=== PATIENT | female | born 1960 ===

== ENCOUNTER 2017-06-05 17:09 | Emergency (ER) | payer MEDICAID ==
[2017-06-05 17:17] VITALS: RESP 18
[2017-06-05] MEDS ORDERED: Albuterol-Ipratrop 3 mg / 0.5 (3 ml) UD IH STA (17:36)
--- NOTE | 2017-06-05 17:54 | RAD ---
HISTORY: SOB, cough COMPARISON: Chest x-ray performed 10/31/16 TECHNIQUE: Chest PA and lateral FINDINGS: Examination limited by habitus and hypoinflation. LUNGS: Prominent interstitial markings likely reflect vascular crowding due to hypoinflation rather than pulmonary venous congestion. Mild biapical pleural thickening. No focal consolidation. Please note that chest x-ray has limited sensitivity for the detection of pulmonary masses. PLEURA: No significant pleural effusion identified. No definite pneumothorax . CARDIOVASCULAR: Heart size appears within normal limits. OSSEOUS STRUCTURES: No acute osseous abnormality identified. VISUALIZED UPPER ABDOMEN: Unremarkable. OTHER FINDINGS: None. IMPRESSION: Prominent interstitial markings likely reflect vascular crowding due to hypoinflation rather than pulmonary venous congestion. Correlate clinically. Mild biapical pleural thickening.
[2017-06-05] MEDS ORDERED: Albuterol-Ipratrop 3 mg / 0.5 (3 ml) UD ONE (17:56)
[2017-06-05 18:11] LABS: BASO % 0.4 % (0.0-2.0); EOS # 0.1 K/uL (0.0-0.7); EOS % 1.1 % (0.0-4.0); HEMATOCRIT 44.7 % (34.0-47.0); LYMPH # 2.2 K/uL (1.0-4.3); LYMPH % 22.7 % (20.0-40.0); MEAN CELL VOLUME 85.5 fL (81.0-99.0); MEAN CORPUSCULAR HEMOGLOBIN 28.3 pg (27.0-31.0); MEAN CORPUSCULAR HGB CONC 33.1 g/dL (33.0-37.0); MEAN PLATELET VOLUME 8.6 fL (7.2-11.7); MONO # 0.7 K/uL (0.0-0.8); MONO % 7.2 % (0.0-10.0); WHITE BLOOD COUNT 9.6 K/uL (4.8-10.8)
[2017-06-05 18:20] LABS: CHLORIDE 104 mmol/L (98-107); POTASSIUM 3.8 mmol/L (3.6-5.2); SODIUM 140 mmol/L (132-148)
[2017-06-05 18:22] LABS: GFR AFRICAN-AMERICAN > 60
[2017-06-05 18:23] LABS: ALKALINE PHOSPHATASE 136 U/L (38-126); ALT/SGPT 42 U/L (9-52); AST/SGOT 21 U/L (14-36); BILIRUBIN,TOTAL 0.5 mg/dL (0.2-1.3); BLOOD UREA NITROGEN 16 mg/dL (7-17); CALCIUM 9.2 mg/dl (8.6-10.4); CARBON DIOXIDE 23 mmol/L (22-30); GLUCOSE,RANDOM 140 mg/dL (65-105); TOTAL PROTEIN 7.5 g/dL (6.3-8.3)
[2017-06-05 18:24] LABS: MAGNESIUM 1.8 mg/dL (1.6-2.3)
--- NOTE | 2017-06-05 18:45 | C.PDOC ---
Time Seen by Provider: 06/05/17 17:24 Chief Complaint (Nursing): Cough, Cold, Congestion History Per: Patient, Family Onset/Duration Of Symptoms: Days (about 1 week) Current Symptoms Are (Timing): Still Present Exacerbating Factor(s): Coughing Current Respiratory Medications: See Home Med List Severity: Moderate Reports Recently: Treated By A Physician Additional History Per: Prior Records Past Medical History Reviewed: Historical Data, Nursing Documentation, Vital Signs Vital Signs: Last Vital Signs Temp 97.8 F 06/05/17 17:13 Pulse 73 06/05/17 17:13 Resp 18 06/05/17 17:13 BP 157/86 H 06/05/17 17:13 Pulse Ox 98 06/05/17 17:13 - Medical History PMH: Asthma, Diabetes, HTN, Kidney Stones, Migraine, Chronic Kidney Disease Family History: States: Unknown Family Hx - Social History Hx Tobacco Use: No Hx Alcohol Use: No Hx Substance Use: No Review Of Systems Except As Marked, All Systems Reviewed And Found Negative. Constitutional: Negative for: Fever, Weakness ENT: Negative for: Nose Congestion, Throat Pain Cardiovascular: Positive for: Chest Pain (only when coughing) Respiratory: Positive for: Cough, Shortness of Breath. Negative for: Hemoptysis Gastrointestinal: Negative for: Vomiting, Abdominal Pain Musculoskeletal: Negative for: Neck Pain, Back Pain, Leg Pain Skin: Negative for: Rash Neurological: Positive for: Headache. Negative for: Weakness, Numbness Physical Exam - Physical Exam Appears: Non-toxic, No Acute Distress Skin: Normal Color, Warm, Dry, No Rash Head: Atraumatic, Normacephalic Eye(s): bilateral: Normal Inspection, PERRL, EOMI Neck: Normal ROM, Supple Cardiovascular: Rhythm Regular Respiratory: No Accessory Muscle Use, Wheezing (mild intermittent expiratory) Gastrointestinal/Abdominal: Soft, No Tenderness Back: No CVA Tenderness Extremity: Normal ROM, No Pedal Edema, No Calf Tenderness Neurological/Psych: Oriented x3, Normal Speech, Normal Motor, Normal Sensation ED Course And Treatment - Laboratory Results Result Diagrams: 06/05/17 18:06 06/05/17 18:06 Lab Interpretation: No Acute Changes ECG: Interpreted By Me, Viewed By Me ECG Rhythm: Sinus Rhythm, PVC, Nonspecific Changes ECG Interpretation: No Acute Changes Rate From EC O2 Sat by Pulse Oximetry: 98 Pulse Ox Interpretation: Normal - Radiology CXR: Viewed By Me, Read By Radiologist CXR Interpretation: Yes: No Acute Disease Progress Note: Pt feels much better and wants to go home. No SOB or chest pain. Peak flow improved to 300. Reassessment Condition: Improved Progress - Interventions Interventions:: Observation - Medications Administered Inhaled nebulized: Anticholinergic, Beta-2 agonist Intravenous: Corticosteroid - Data Reviewed Data Reviewed: Lab, Diagnostic imaging, EKG, Old records - Patient Status Patient status: Mostly improved - Continuity of Care Discussed patient case with:: Patient, Family-HIPPA compliant, ED Nurse - Patient Plan Patient Plan: Discharge, F/U with PCP, Continue present meds Disposition Counseled Patient/Family Regarding: Studies Performed, Diagnosis, Need For Followup, Rx Given - Disposition Disposition: HOME/ ROUTINE Disposition Time: 18:46 Condition: IMPROVED Additional Instructions: Follow up with your doctor within 2-3 days for further evaluation and treatment. Return to the ER if you develop fever, shortness of breath, worsening of symptoms or if you have any other concerns. Prescriptions: Azithromycin [Zithromax] 1 dose PO DAILY #1 pkt predniSONE [predniSONE Tab] 2 tab PO DAILY #10 tab Instructions: Acute Bronchitis (ED) Forms: [employer]SC[employer] (Citizen Of [place]) Print Language: MAORI - Clinical Impression Clinical Impression: Bronchitis
[2017-06-05 19:01] VITALS: BP 136/88; PULSE 82; TEMP 98; O2SAT 96
--- NOTE | 2017-06-07 18:35 | CARD ---
APPROVED REPORT EKG Measurement Heart [id number] <Conclusion> Sinus rhythm with occasional premature ventricular complexes Otherwise normal ECG
== END 2017-06-05 19:02 | disposition home or self-care (01) ==
LOC: C.ER 17:09
DX: J40 Bronchitis, not specified as acute or chronic (principal)
CPT/HCPCS: 71020; 80053; 83735; 83880; 84484; 85025; 93005; 94150; 94640; 96374; 99284; J2930

== ENCOUNTER 2018-01-30 12:52 | Emergency (ER) | payer MEDICAID ==
[2018-01-30 12:54] VITALS: BMI 37.2
[2018-01-30 13:00] VITALS: TEMP 97.9
[2018-01-30] MEDS ORDERED: Albuterol-Ipratrop 3 mg / 0.5 (3 ml) UD ONE ×2 (13:13→13:49)
[2018-01-30] MEDS ORDERED: Albuterol-Ipratrop 3 mg / 0.5 (3 ml) UD IH STA (13:32)
[2018-01-30 14:15] LABS: BASO % 0.3 % (0.0-2.0); EOS % 0.4 % (0.0-4.0); HEMOGLOBIN 15.8 g/dL (11.0-16.0); LYMPH % 19.5 % (20.0-40.0); MEAN CELL VOLUME 85.7 fL (81.0-99.0); MEAN CORPUSCULAR HEMOGLOBIN 29.3 pg (27.0-31.0); MEAN CORPUSCULAR HGB CONC 34.2 g/dL (33.0-37.0); MEAN PLATELET VOLUME 9.6 fL (7.2-11.7); MONO # 0.6 K/uL (0.0-0.8); NEUT # 7.4 K/uL (1.8-7.0); NEUT % 73.8 % (50.0-75.0); RBC 5.39 Mil/uL (3.80-5.20); RED CELL DISTRIBUTION WIDTH 13.6 % (11.5-14.5); WHITE BLOOD COUNT 10.1 K/uL (4.8-10.8)
[2018-01-30 14:31] LABS: ALB/GLOB RATIO 0.9 (1.0-2.1); ALBUMIN 4.1 g/dL (3.5-5.0); ALT/SGPT 39 U/L (9-52); AST/SGOT 36 U/L (14-36); BLOOD UREA NITROGEN 11 mg/dL (7-17); CALCIUM 9.3 mg/dl (8.6-10.4); GFR AFRICAN-AMERICAN > 60; GFR NON-AFRICAN AMERICAN > 60
[2018-01-30 14:40] LABS: B-TYPE NATRIURETIC PEPTIDE 151 pg/mL (0-900)
--- NOTE | 2018-01-30 14:54 | RAD ---
HISTORY: SOB, cough COMPARISON: 06/05/2017 TECHNIQUE: Chest PA and lateral FINDINGS: LUNGS: No active pulmonary disease. PLEURA: No significant pleural effusion identified. No pneumothorax apparent. CARDIOVASCULAR: Normal. OSSEOUS STRUCTURES: No significant abnormalities. VISUALIZED UPPER ABDOMEN: Normal. OTHER FINDINGS: None. IMPRESSION: No active disease.
--- NOTE | 2018-01-30 15:29 | C.PDOC ---
Time Seen by Provider: 01/30/18 13:00 Chief Complaint (Nursing): Shortness Of Breath History Per: Patient Onset/Duration Of Symptoms: Days (about 1 week) Current Symptoms Are (Timing): Still Present Quality: Tightness Current Respiratory Medications: See Home Med List Severity: Moderate Associated Symptoms: Productive Cough Additional History Per: Prior Records Past Medical History Reviewed: Historical Data, Nursing Documentation, Vital Signs Vital Signs: Last Vital Signs Temp 97.9 F 01/30/18 12:59 Pulse 73 01/30/18 15:31 Resp 25 H 01/30/18 15:31 BP 132/71 01/30/18 15:31 Pulse Ox 96 01/30/18 15:31 - Medical History PMH: Asthma, Diabetes, HTN, Kidney Stones, Migraine, Chronic Kidney Disease Surgical History: Cholecystectomy Family History: States: Unknown Family Hx - Social History Hx Tobacco Use: No Hx Alcohol Use: No Hx Substance Use: No Review Of Systems Except As Marked, All Systems Reviewed And Found Negative. Constitutional: Negative for: Weakness Respiratory: Positive for: Cough, Wheezing. Negative for: Hemoptysis Gastrointestinal: Negative for: Abdominal Pain Musculoskeletal: Negative for: Neck Pain, Back Pain, Leg Pain Skin: Negative for: Rash Neurological: Negative for: Weakness, Numbness, Seizures, Altered Mental Status Physical Exam - Physical Exam Appears: In Acute Distress (mild) Skin: Normal Color, Warm, Dry, No Rash Head: Atraumatic, Normacephalic Eye(s): bilateral: PERRL, EOMI Neck: Normal ROM, Supple Cardiovascular: Rhythm Regular Respiratory: No Accessory Muscle Use, Wheezing (mild), Other (coughing) Gastrointestinal/Abdominal: Soft, No Tenderness Back: No CVA Tenderness Extremity: Normal ROM, No Pedal Edema, No Calf Tenderness Neurological/Psych: Oriented x3, Normal Motor, Normal Sensation ED Course And Treatment - Laboratory Results Result Diagrams: 01/30/18 14:06 01/30/18 14:06 Lab Interpretation: No Acute Changes O2 Sat by Pulse Oximetry: 99 Pulse Ox Interpretation: Normal - Radiology CXR: Viewed By Me, Read By Radiologist CXR Interpretation: Yes: No Acute Disease, Heart Size (wnl) Progress Note: Pt feels much better and wants to go home. Lungs clear. Reassessment Condition: Improved Progress - Interventions Interventions:: Observation - Medications Administered Inhaled nebulized: Anticholinergic, Beta-2 agonist Intravenous: Corticosteroid - Data Reviewed Data Reviewed: Lab, Diagnostic imaging, Old records - Patient Status Patient status: Mostly improved - Continuity of Care Discussed patient case with:: Patient, Family-HIPPA compliant, ED Nurse - Patient Plan Patient Plan: Discharge, F/U with PCP, Continue present meds Disposition Counseled Patient/Family Regarding: Studies Performed, Diagnosis, Need For Followup, Rx Given - Disposition Referrals: Antelmo Szymanski DO [[facility]] - Disposition: HOME/ ROUTINE Disposition Time: 15:33 Condition: IMPROVED Additional Instructions: Follow up with your doctor within 2 days. Return to the ER if you develop shortness of breath, chest pain, worsening of symptoms or if you have any other concerns. Prescriptions: Azithromycin [Zithromax] 1 dose PO DAILY #1 pkt Benzonatate 200 mg PO TID PRN #15 capsule PRN Reason: Cough predniSONE [predniSONE Tab] 2 tab PO DAILY #10 tab Instructions: Acute Bronchitis, Adult (DC) Forms: [employer] ([place]an) Print Language: PERSIAN - Clinical Impression Clinical Impression: Acute wheezy bronchitis
[2018-01-30 15:32] VITALS: BP 132/71; PULSE 73; RESP 25
[2018-01-30 15:35] VITALS: O2SAT 99
== END 2018-01-30 16:02 | disposition home or self-care (01) ==
LOC: C.ER 12:52
DX: J20.9 Acute bronchitis, unspecified (principal)
CPT/HCPCS: 71046; 80053; 83735; 83880; 84484; 85025; 94640; 96374; 99285; J2930

== ENCOUNTER 2018-10-11 15:50 | Inpatient (IN) | payer MEDICAID ==
[2018-10-11 15:50] VITALS: BMI 37.2
[2018-10-11] MEDS ORDERED: Aspirin 325 mg EC Tablets PO STA (17:06)
[2018-10-11] MEDS ORDERED: Aspirin 325 mg EC Tablets PO ONE (17:26)
[2018-10-11 17:33] LABS: BASO # 0.1 K/uL (0.0-0.2); BASO % 0.4 % (0.0-2.0); EOS # 0.1 K/uL (0.0-0.7); EOS % 0.7 % (0.0-4.0); HEMOGLOBIN 15.6 g/dL (11.0-16.0); LYMPH # 2.4 K/uL (1.0-4.3); LYMPH % 17.7 % (20.0-40.0); MEAN CELL VOLUME 87.2 fL (81.0-99.0); MEAN CORPUSCULAR HEMOGLOBIN 28.9 pg (27.0-31.0); MEAN CORPUSCULAR HGB CONC 33.1 g/dL (33.0-37.0); MEAN PLATELET VOLUME 9.3 fL (7.2-11.7); MONO # 0.7 K/uL (0.0-0.8); MONO % 5.3 % (0.0-10.0); NEUT # 10.2 K/uL (1.8-7.0); NEUT % 75.9 % (50.0-75.0); NRBC % 0.1 % (0.0-2.0); RBC 5.41 Mil/uL (3.80-5.20); RED CELL DISTRIBUTION WIDTH 13.6 % (11.5-14.5); WHITE BLOOD COUNT 13.5 K/uL (4.8-10.8)
[2018-10-11 17:45] LABS: BLOOD UREA NITROGEN 13 mg/dL (7-17); CALCIUM 9.3 mg/dl (8.6-10.4); GFR NON-AFRICAN AMERICAN > 60
--- NOTE | 2018-10-11 17:47 | RAD ---
HISTORY: SOB COMPARISON: Chest x-ray performed 01/30/18 TECHNIQUE: Chest PA and lateral FINDINGS: LUNGS: No focal consolidation. Please note that chest x-ray has limited sensitivity for the detection of pulmonary masses. PLEURA: No significant pleural effusion identified. No definite pneumothorax . CARDIOVASCULAR: Heart size appears within normal limits. Atherosclerotic calcification present. OSSEOUS STRUCTURES: No acute osseous abnormality identified. VISUALIZED UPPER ABDOMEN: Unremarkable. OTHER FINDINGS: None. IMPRESSION: No focal consolidation identified.
[2018-10-11 17:49] LABS: ALB/GLOB RATIO 1.1 (1.0-2.1); ALBUMIN 4.4 g/dL (3.5-5.0); ALT/SGPT 36 U/L (9-52); AST/SGOT 40 U/L (14-36)
[2018-10-11 17:56] LABS: B-TYPE NATRIURETIC PEPTIDE 94.3 pg/mL (0-900)
--- NOTE | 2018-10-11 18:12 | C.PDOC ---
History Of Present Illness 58 year old female presents to the emergency department with complaints of chest pressure, associated with shortness of breath, radiating to the left shoulder and down the left arm for the last 2-4 weeks. Patient states that the pain occurs with and without exertion. Patient also reports using a normal walker due to vertigo for the last 8 years. Patient has a history of cardiac murmur with a cardiac echo done as an outpatient at a different location. Time Seen by Provider: 10/11/18 16:57 Chief Complaint (Nursing): Flu-like Symptoms History Per: Patient History/Exam Limitations: no limitations Onset/Duration Of Symptoms: Other (2-4 weeks) Current Symptoms Are (Timing): Still Present Past Medical History Reviewed: Historical Data, Nursing Documentation, Vital Signs Vital Signs: Last Vital Signs Temp 98.2 F 10/11/18 16:06 Pulse 84 10/11/18 16:06 Resp 20 10/11/18 16:06 BP 144/86 10/11/18 16:06 Pulse Ox 96 10/11/18 16:06 - Medical History PMH: Asthma, Diabetes, HTN, Kidney Stones, Migraine, Chronic Kidney Disease Surgical History: Cholecystectomy Family History: States: No Known Family Hx - Social History Hx Tobacco Use: No Hx Alcohol Use: No Hx Substance Use: No - Immunization History Hx Tetanus Toxoid Vaccination: No Hx Influenza Vaccination: No Hx Pneumococcal Vaccination: No Review Of Systems Except As Marked, All Systems Reviewed And Found Negative. Cardiovascular: Positive for: Chest Pain (chest pressure) Musculoskeletal: Positive for: Shoulder Pain (left), Arm Pain (left) Physical Exam - Physical Exam Appears: Non-toxic, No Acute Distress Skin: Normal Color, Warm, Dry Head: Atraumatic, Normacephalic Eye(s): bilateral: Normal Inspection, PERRL, EOMI Nose: Normal Oral Mucosa: Moist Neck: Normal, Supple Chest: Symmetrical, No Tenderness Cardiovascular: Rhythm Regular, Murmur (hollow, systolic decresendo murmur at the right parasternal border. Hollow systolic murmur in the mitral focus. ) Respiratory: Normal Breath Sounds, No Rales, No Rhonchi, No Wheezing Gastrointestinal/Abdominal: Soft, No Tenderness, No Guarding, No Rebound Extremity: Normal ROM Extremity: Bilateral: Atraumatic Neurological/Psych: Oriented x3, Normal Speech, Normal Cognition ED Course And Treatment - Laboratory Results Result Diagrams: 10/11/18 17:29 10/11/18 17:29 Lab Interpretation: Abnormal (+ leukocytosis, UA neg.) ECG: Interpreted By Me ECG Rhythm: Sinus Rhythm ECG Interpretation: Normal Rate From EC O2 Sat by Pulse Oximetry: 96 (RA) Pulse Ox Interpretation: Normal - Radiology CXR: Interpreted by Me CXR Interpretation: Yes: No Acute Disease - CT Scan/US CTA for PE protocol Other Rad Studies (CT/US): Interpreted By Me, Radiology Report Reviewed (neg) - Physician Consult Information Outcome Of Conversation: 1899: d/w Dr. Yoo- Medicine Application Infrastructure Engineer- ok to admit. Medical Decision Making Medical Decision Making: Plan: EKG Chemistry Hematology CXR Ecotrin 325mg PO Influenza Serology Urinalysis ? unstable angina normal labs/EKG, CXR, mild elev D Dimer 657 H, CTA for PE NEG Cardiac eval Disposition Doctor Will See Patient In The: Hospital Counseled Patient/Family Regarding: Studies Performed, Diagnosis - Disposition Disposition: HOSPITALIZED Disposition Time: 20:10 Condition: GOOD - Clinical Impression Clinical Impression: Chest tightness or pressure - Scribe Statement The provider has reviewed the documentation as recorded by the Scribe (Horace Amaral) Provider Attestation: All medical record entries made by the Scribe were at my direction and personally dictated by me. I have reviewed the chart and agree that the record accurately reflects my personal performance of the history, physical exam, m edical decision making, and the department course for this patient. I have also personally directed, reviewed, and agree with the discharge instructions and disposition.
[2018-10-11 18:18] LABS: SQUAMOUS EPITHIAL 2 /hpf (0-5); URINE BACTERIA RARE (<OCC); URINE BILIRUBIN NEGATIVE (NEGATIVE); URINE BLOOD 1+ (NEGATIVE); URINE CALCIUM OXALATE CRYSTALS FEW /hpf (<OCC); URINE CLARITY Clear (Clear); URINE COLOR Yellow (YELLOW); URINE GLUCOSE (UA) 3+ mg/dL (Normal); URINE LEUKOCYTE ESTERASE NEG Leu/uL (Negative); URINE PROTEIN 2+ mg/dL (NEGATIVE); URINE UROBILINOGEN NORMAL mg/dL (0.2-1.0)
[2018-10-11 18:22] LABS: INR 1.1; PROTHROMBIN TIME 11.6 SECONDS (9.7-12.2)
[2018-10-11] MEDS ORDERED: Iohexol 350mg/ml 100 ML ONE (19:00)
--- NOTE | 2018-10-11 19:27 | CP.PCM.HP ---
History of Present Illness - History of Present Illness History of Present Illness: 58 year old female presents to the emergency department with complaints of chest pressure, associated with shortness of breath, radiating to the left shoulder and down the left arm for the last 2-4 weeks. Patient states that the pain o ccurs with and without exertion. Patient also reports using a normal walker due to vertigo for the last 8 years. Patient has a history of cardiac murmur with a cardiac echo done as an outpatient at a different location. Present on Admission - Present on Admission Any Indicators Present on Admission: No Review of Systems - Review of Systems All systems: reviewed and no additional remarkable complaints except (chest pain) Past Patient History - Past Social History Smoking Status: Never Smoked - CARDIAC Hx Hypertension: Yes - PULMONARY Hx Asthma: Yes - NEUROLOGICAL Hx Migraine: Yes - RENAL Hx Chronic Kidney Disease: Yes Hx Kidney Stones: Yes - ENDOCRINE/METABOLIC Hx Endocrine Disorders: Yes Hx Diabetes Mellitus Type 2: Yes - PSYCHIATRIC Hx Substance Use: No - SURGICAL HISTORY Hx Cholecystectomy: Yes - ANESTHESIA Hx Anesthesia: Yes Hx Anesthesia Reactions: No Meds Allergies/Adverse Reactions: Allergies Allergy/AdvReac Type Severity Reaction Status Date / Time celery Allergy Severe ITCHING Verified 01/30/18 12:54 Penicillins Allergy Severe RASH Verified 01/30/18 12:54 Physical Exam - Constitutional Appears: Well - Head Exam Head Exam: ATRAUMATIC, NORMAL INSPECTION, NORMOCEPHALIC - Eye Exam Eye Exam: EOMI, Normal appearance, PERRL - ENT Exam ENT Exam: Mucous Membranes Moist, Normal Exam - Neck Exam Neck exam: Positive for: Normal Inspection - Respiratory Exam Respiratory Exam: Clear to Auscultation Bilateral, NORMAL BREATHING PATTERN - Cardiovascular Exam Cardiovascular Exam: REGULAR RHYTHM - Rectal Exam Rectal Exam: NORMAL INSPECTION - Back Exam Back exam: NORMAL INSPECTION - Neurological Exam Neurological exam: Alert, CN II-XII Intact, Normal Gait, Oriented x3, Reflexes Normal Results - Vital Signs Recent Vital Signs: Last Vital Signs Temp 97.9 F 10/11/18 18:56 Pulse 74 10/11/18 18:56 Resp 19 10/11/18 18:56 BP 151/88 H 10/11/18 18:56 Pulse Ox 98 10/11/18 18:56 - Labs Result Diagrams: 10/11/18 17:29 10/11/18 17:29 Labs: Laboratory Results - last 24 hr 10/11/18 10/11/18 10/11/18 17:29 17:29 17:29 WBC 13.5 H RBC 5.41 H Hgb 15.6 Hct 47.2 H MCV 87.2 MCH 28.9 MCHC 33.1 RDW 13.6 Plt Count 254 MPV 9.3 Neut % (Auto) 75.9 H Lymph % (Auto) 17.7 L [place] % (Auto) 5.3 Eos % (Auto) 0.7 Baso % (Auto) 0.4 Neut # (Auto) 10.2 H Lymph # (Auto) 2.4 [place] # (Auto) 0.7 Eos # (Auto) 0.1 Baso # (Auto) 0.1 PT INR APTT D-Dimer, Quantitative Sodium 137 Potassium 4.9 Chloride 103 Carbon Dioxide 25 Anion Gap 13 BUN 13 Creatinine 0.6 L Est GFR ( Amer) > 60 Est GFR (Non-Af Amer) > 60 Random Glucose 216 H Calcium 9.3 Total Bilirubin 0.6 AST 40 H ALT 36 Alkaline Phosphatase 141 H Troponin I < 0.0120 NT-Pro-B Natriuret Pep 94.3 Total Protein 8.4 H Albumin 4.4 Globulin 4.1 H Albumin/Globulin Ratio 1.1 Urine Color Urine Clarity Urine pH Ur Specific [place] Urine Protein Urine Glucose (UA) Urine Ketones Urine Blood Urine Nitrate Urine Bilirubin Urine Urobilinogen Ur Leukocyte Esterase Urine WBC (Auto) Urine RBC (Auto) Ur Squamous Epith Cells Calcium Oxalate Crystal Urine Bacteria Influenza Typ A,B (EIA) Negative for flu a/b 10/11/18 10/11/18 18:08 18:08 WBC RBC Hgb Hct MCV MCH MCHC RDW Plt Count MPV Neut % (Auto) Lymph % (Auto) [place] % (Auto) Eos % (Auto) Baso % (Auto) Neut # (Auto) Lymph # (Auto) [place] # (Auto) Eos # (Auto) Baso # (Auto) PT 11.6 INR 1.1 APTT 25 D-Dimer, Quantitative 657 H Sodium Potassium Chloride Carbon Dioxide Anion Gap BUN Creatinine Est GFR ( Amer) Est GFR (Non-Af Amer) Random Glucose Calcium Total Bilirubin AST ALT Alkaline Phosphatase Troponin I NT-Pro-B Natriuret Pep Total Protein Albumin Globulin Albumin/Globulin Ratio Urine Color Yellow Urine Clarity Clear Urine pH 5.0 Ur Specific Mobile 1.027 Urine Protein 2+ H Urine Glucose (UA) 3+ H Urine Ketones Negative Urine Blood 1+ H Urine Nitrate Negative Urine Bilirubin Negative Urine Urobilinogen Normal Ur Leukocyte Esterase Neg Urine WBC (Auto) 2 Urine RBC (Auto) 7 H Ur Squamous Epith Cells 2 Calcium Oxalate Crystal Few H Urine Bacteria Rare Influenza Typ A,B (EIA) Assessment & Plan (1) Chest pain due to CAD Status: Acute (2) Diabetes Status: Acute
[2018-10-11] MEDS ORDERED: FLUTICASONE PROPIONATE IH PRN (20:51)
[2018-10-11] MEDS ORDERED: Albuterol HFA 90 mcg/actuation (8 g) IH PRN (20:51)
[2018-10-11] MEDS: (Novolin R) Insulin Human Regular 100 units/ml vial SC SCH (21:50)
[2018-10-11] MEDS: Enoxaparin 40 mg Syringe SC SCH (21:53)
[2018-10-11] MEDS ORDERED: Home Med 1 UNIT (Melatonin [Melatonin] 5 MG) PO SCH (22:00)
[2018-10-11 22:37] VITALS: RESP 20
[2018-10-12 02:15] LABS: CK-MB < 0.22 ng/mL (0.0-3.38)
[2018-10-12] MEDS ORDERED: Tiotropium 18 mcg Cap For Inhalation INH SCH (08:00)
[2018-10-12] MEDS: (Novolin R) Insulin Human Regular 100 units/ml vial SC SCH ×4 (09:07→22:18)
[2018-10-12] MEDS: Enoxaparin 40 mg Syringe SC SCH ×2 (09:07→18:07)
[2018-10-12] MEDS ORDERED: Home Med 1 UNIT (Omeprazole [Omeprazole] 40 MG) PO SCH (10:00)
[2018-10-12] MEDS ORDERED: Home Med 1 UNIT (Losartan/Hydrochlorothiazide [Losartan-Hctz 100-25 Mg Tab] 1 TAB) PO SCH (10:00)
--- NOTE | 2018-10-12 10:00 | CT ---
Date of service: 10/11/2018 PROCEDURE: CT Chest with contrast (Pulmonary Angiogram) HISTORY: SOB/PRATER, elev d-dimer COMPARISON: NOT AVAILABLE TECHNIQUE: Axial computed tomography images were obtained of the chest in the pulmonary arterial phase of enhancement. Coronal and sagittal reformatted images were created and reviewed. Intravenous contrast dose: 100 mL Omnipaque 350 Radiation dose: Total exam DLP = 487.78 mGy-cm. This CT exam was performed using one or more of the following dose reduction techniques: Automated exposure control, adjustment of the mA and/or kV according to patient size, and/or use of iterative reconstruction technique. FINDINGS: PULMONARY ARTERIES: Unremarkable. No pulmonary embolism. AORTA: No acute findings. No thoracic aortic aneurysm. No aortic atherosclerotic calcification or mural plaque present. LUNGS: No infiltrate. 6 mm subpleural nodule in the left lower lobe abutting the major fissure (series 4, image 49). 5 mm subpleural nodule in the right lower lobe (series 4, image 43). A follow-up noncontrast chest CT examination is advised in 6-12 months as per Fleischner society criteria. PLEURAL SPACES: Unremarkable. No effusion or pneumothorax. HEART: Unremarkable. No cardiomegaly. No significant pericardial effusion. LYMPH NODES: No lymphadenopathy. BONES, CHEST WALL: Unremarkable. No fracture or destructive lesion OTHER FINDINGS: Unremarkable. IMPRESSION: No evidence of pulmonary embolism. Incidental 6 mm nodule left lower lobe for which follow-up noncontrast chest CT examination is advised in 6-12 months as per Fleischner society criteria. No specific follow-up is advised 45 mm right lower lobe nodule, again as per criteria. The preliminary findings for this examination were reported by [facility] at 8:06 p.m. on 10/11/2018. There is concurrence of this report with the preliminary findings.
[2018-10-12 11:29] LABS: CK-MB 0.24 ng/mL (0.0-3.38)
[2018-10-12] MEDS ORDERED: guaiFENesin-Codeine 100-10mg/5ml Syrup (10ml) UD PO PRN (13:32)
[2018-10-12] MEDS ORDERED: Promethazine DM 6.25 mg-15 mg/5 ml Syrup PO PRN (13:34)
--- NOTE | 2018-10-12 13:59 | CP.PCM.PN ---
Subjective - Date & Time of Evaluation Date of Evaluation: 10/12/18 Time of Evaluation: 13:59 - Subjective Subjective: No further chest pain. Vital signs are stable Physical findings remain the same 2 sets of cardiac enzymes are negative EKG shows no acute changes Awaiting echo report. Objective - Vital Signs/Intake and Output Vital Signs (last 24 hours): Temp Pulse Resp BP Pulse Ox 97.9 F 67 20 144/87 98 10/12/18 07:00 10/12/18 07:00 10/12/18 07:00 10/12/18 09:05 10/12/18 07:00 Intake and Output: 10/12/18 10/12/18 11:59 23:59 Intake Total 120 Balance 120 - Medications Medications: Current Medications Albuterol (Ventolin Hfa 90 Mcg/Actuation (8 G)) 2 puff IH Q6 PRN PRN Reason: Wheezing Amlodipine Besylate (Norvasc) 5 mg PO DAILY [facility] Last Admin: 10/12/18 09:07 Dose: 5 mg Enoxaparin Sodium (Lovenox) 40 mg SC BID [facility] Last Admin: 10/12/18 09:07 Dose: 40 mg Glimepiride (Amaryl) 2 mg PO DAILY [facility] Last Admin: 10/12/18 09:05 Dose: 2 mg Home Med (Fluticasone Propionate [Flovent Hfa]) 0.11 mg IH BID PRN PRN Reason: Wheezing Home Med (Losartan/Hydrochlorothiazide [Losartan-Hctz 100-25 Mg Tab]) 1 tab PO DAILY [facility] Last Admin: 10/12/18 11:43 Dose: Not Given Home Med (Melatonin [Melatonin]) 5 mg PO HS [facility] Last Admin: 10/11/18 22:18 Dose: Not Given Home Med (Omeprazole [Omeprazole]) 40 mg PO DAILY [facility] Last Admin: 10/12/18 11:43 Dose: Not Given Influenza Virus Vaccine (Fluzone Quad [id number]) 60 mcg IM .ONCE ONE Stop: 10/13/18 10:01 Insulin Human Regular (Novolin R) 0 unit SC [facility]; Protocol Last Admin: 10/12/18 13:04 Dose: 2 u Meclizine HCl (Antivert) 12.5 mg PO BID [facility] Last Admin: 10/12/18 09:07 Dose: 12.5 mg Metformin HCl (Glucophage) 1,000 mg PO BID [facility] Last Admin: 10/12/18 09:07 Dose: 1,000 mg Metoprolol Tartrate (Lopressor) 25 mg PO BID [facility] Last Admin: 10/12/18 09:05 Dose: 25 mg Promethazine HCl/Dextromethorphan (Phenergan Dm Syrup) 5 ml PO Q4H PRN PRN Reason: Cough Tiotropium [place] (Spiriva Inhalation Handihaler Device) 1 inhaler INH DAILY [facility] Tiotropium [place] (Spiriva) 18 mcg INH RQ24 [facility] - Labs Labs: 10/11/18 17:29 10/11/18 17:29 PT 11.6 SECONDS (9.7-12.2) 10/11/18 18:08 INR 1.1 10/11/18 18:08 APTT 25 SECONDS (21-34) 10/11/18 18:08 Assessment and Plan (1) Chest pain due to CAD Status: Acute (2) Diabetes Status: Acute
[2018-10-12] MEDS ORDERED: Home Med 1 UNIT (Melatonin [Melatonin] 5 MG) PO SCH (22:00)
--- NOTE | 2018-10-12 22:25 | CARD ---
APPROVED REPORT Date of service: 10/11/2018 EKG Measurement Heart [id number] <Conclusion> Normal sinus rhythm Minimal voltage criteria for LVH, may be normal variant Borderline ECG
--- NOTE | 2018-10-12 23:21 | CARD ---
APPROVED REPORT Date of service: 10/12/2018 EXAM: Two-dimensional and M-mode echocardiogram with Doppler and color Doppler. INDICATION Dyspnea CAD Chest Pain Murmur RISK FACTORS Hypertension 2D DIMENSIONS IVSd0.9 (0.7-1.1cm)Aortic Root (2D)2.4 (2.0-3.7cm) LVDd4.1 (3.9-5.9cm)PWd0.9 (0.7-1.1cm) LA Grhnav21 (18-58mL)LVDs3.0 (2.5-4.0cm) FS (%) 25.5 %LVEF (%)60.0 (>50%) LVEF (Butt's)73.88 %IVC0.00 cm M-Mode DIMENSIONS Left Atrium (MM)3.85 (2.5-4.0cm)IVSd0.94 (0.7-1.1cm) Aortic Root2.26 (2.2-3.7cm)LVDd3.90 (4.0-5.6cm) Aortic Cusp Exc.1.60 (1.5-2.0cm)PWd0.81 (0.7-1.1cm) FS (%) 37 %LVDs2.47 (2.0-3.8cm) LVEF (%)67 (>50%) Mitral Valve MV E Vhlyetvy99.5cm/sMV A Ceadachc11.9cm/sE/A ratio0.8 TDI Medial E' Peak V5.90cm/sE/Lateral E'0.0E/Medial E'11.4 Tricuspid Valve TR Peak [id number]/sTR Peak Gr.90ejLiGDGK35isKm LEFT VENTRICLE The left ventricle is normal size. There is normal left ventricular wall thickness. Left ventricle systolic function is normal. The Ejection Fraction is 65-70%. There is normal LV segmental wall motion. The left ventricular diastolic function is abnormal. Transmitral Doppler flow pattern is Grade I-abnormal relaxation pattern. No left ventricle thrombus noted on this study. RIGHT VENTRICLE The right ventricle is normal size. The right ventricular systolic function is normal. ATRIA The left atrium size is normal. The right atrium size is normal. AORTIC VALVE The aortic valve is mildly thickened. The aortic valve is trileaflet. No aortic regurgitation is present. There is no aortic valvular stenosis. There is no aortic valvular vegetation. MITRAL VALVE Mitral annular calcification is mild. There is no evidence of mitral valve prolapse. There is no mitral valve stenosis. Mitral regurgitation is mild. TRICUSPID VALVE The tricuspid valve is normal in structure. There is mild tricuspid regurgitation. Right ventricular systolic pressure is estimated at less than 30 mmHg. There is no pulmonary hypertension. There is no tricuspid valve prolapse or vegetation. There is no tricuspid valve stenosis. PULMONIC VALVE The pulmonic valve is not well visualized. There is trace pulmonic valvular regurgitation. There is no pulmonic valvular stenosis. GREAT VESSELS The aortic root is normal in size. The IVC is normal in size and collapses >50% with inspiration. PERICARDIAL EFFUSION There is no pericardial effusion. There is no pleural effusion. <Conclusion> The left ventricle is normal size. Left ventricle systolic function is normal. The Ejection Fraction is 65-70%. The left ventricular diastolic function is abnormal. Transmitral Doppler flow pattern is Grade I-abnormal relaxation pattern. The right ventricle is normal size. The right ventricular systolic function is normal. The left atrium size is normal. The right atrium size is normal. Mitral regurgitation is mild. There is mild tricuspid regurgitation. There is trace pulmonic valvular regurgitation.
[2018-10-13 08:33] VITALS: TEMP 98.3; O2SAT 98
[2018-10-13] MEDS: (Novolin R) Insulin Human Regular 100 units/ml vial SC SCH ×2 (08:45→12:36)
[2018-10-13] MEDS: Enoxaparin 40 mg Syringe SC SCH (09:57)
[2018-10-13 09:58] VITALS: BP 133/87
[2018-10-13] MEDS ORDERED: Influenza Vaccine 60 MCG/0.5 ML SYR (3 yr & up) IM ONE (10:00)
[2018-10-13] MEDS ORDERED: Pantoprazole 40 mg EC Tab PO SCH (10:00)
--- NOTE | 2018-10-13 13:32 | CP.PCM.DIS ---
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 Core Measures Referral Routine Comment: Physician Instructions: Reason For Exam: history of asthma Time Spent in preparation of Discharge (in minutes): 30 Diagnosis - Discharge Diagnosis (1) Chest pain due to CAD Status: Acute (2) Diabetes Status: Acute Hospital Course - Lab Results Lab Results: Most Recent Lab Values WBC 13.5 K/uL (4.8-10.8) H 10/11/18 17:29 RBC 5.41 Mil/uL (3.80-5.20) H 10/11/18 17:29 Hgb 15.6 g/dL (11.0-16.0) 10/11/18 17:29 Hct 47.2 % (34.0-47.0) H 10/11/18 17:29 MCV 87.2 fL (81.0-99.0) 10/11/18 17:29 MCH 28.9 pg (27.0-31.0) 10/11/18 17:29 MCHC 33.1 g/dL (33.0-37.0) 10/11/18 17:29 RDW 13.6 % (11.5-14.5) 10/11/18 17:29 Plt Count 254 K/uL (130-400) 10/11/18 17:29 MPV 9.3 fL (7.2-11.7) 10/11/18 17:29 Neut % (Auto) 75.9 % (50.0-75.0) H 10/11/18 17:29 Lymph % (Auto) 17.7 % (20.0-40.0) L 10/11/18 17:29 [place] % (Auto) 5.3 % (0.0-10.0) 10/11/18 17:29 Eos % (Auto) 0.7 % (0.0-4.0) 10/11/18 17:29 Baso % (Auto) 0.4 % (0.0-2.0) 10/11/18 17:29 Neut # (Auto) 10.2 K/uL (1.8-7.0) H 10/11/18 17:29 Lymph # (Auto) 2.4 K/uL (1.0-4.3) 10/11/18 17:29 [place] # (Auto) 0.7 K/uL (0.0-0.8) 10/11/18 17:29 Eos # (Auto) 0.1 K/uL (0.0-0.7) 10/11/18 17:29 Baso # (Auto) 0.1 K/uL (0.0-0.2) 10/11/18 17:29 PT 11.6 SECONDS (9.7-12.2) 10/11/18 18:08 INR 1.1 10/11/18 18:08 APTT 25 SECONDS (21-34) 10/11/18 18:08 D-Dimer, Quantitative 657 ng/mlDDU (0-243) H 10/11/18 18:08 Sodium 137 mmol/L (132-148) 10/11/18 17:29 Potassium 4.9 mmol/L (3.6-5.2) 10/11/18 17:29 Chloride 103 mmol/L (98-107) 10/11/18 17:29 Carbon Dioxide 25 mmol/L (22-30) 10/11/18 17:29 Anion Gap 13 (10-20) 10/11/18 17:29 BUN 13 mg/dL (7-17) 10/11/18 17:29 Creatinine 0.6 mg/dL (0.7-1.2) L 10/11/18 17:29 Est GFR ( Amer) > 60 10/11/18 17:29 Est GFR (Non-Af Amer) > 60 10/11/18 17:29 POC Glucose (mg/dL) 138 mg/dL (65-110) H 10/13/18 11:11 Random Glucose 216 mg/dL (65-105) H 10/11/18 17:29 Calcium 9.3 mg/dl (8.6-10.4) 10/11/18 17:29 Total Bilirubin 0.6 mg/dL (0.2-1.3) 10/11/18 17:29 AST 40 U/L (14-36) H 10/11/18 17:29 ALT 36 U/L (9-52) 10/11/18 17:29 Alkaline Phosphatase 141 U/L (38-126) H 10/11/18 17:29 Total Creatine Kinase 38 U/L (30-135) 10/12/18 10:56 CK-MB (Mass) 0.24 ng/mL (0.0-3.38) 10/12/18 10:56 Troponin I < 0.0120 ng/mL (0.00-0.120) 10/12/18 10:56 NT-Pro-B Natriuret Pep 94.3 pg/mL (0-900) 10/11/18 17:29 Total Protein 8.4 g/dL (6.3-8.3) H 10/11/18 17: Albumin 4.4 g/dL (3.5-5.0) 10/11/18 17: Globulin 4.1 gm/dL (2.2-3.9) H 10/11/18 17: Albumin/Globulin Ratio 1.1 (1.0-2.1) 10/11/18 17:29 Urine Color Yellow (YELLOW) 10/11/18 18:08 Urine Clarity Clear (Clear) 10/11/18 18:08 Urine pH 5.0 (5.0-8.0) 10/11/18 18:08 Ur Specific [place] 1.027 (1.003-1.030) 10/11/18 18:08 Urine Protein 2+ mg/dL (NEGATIVE) H 10/11/18 18:08 Urine Glucose (UA) 3+ mg/dL (Normal) H 10/11/18 18:08 Urine Ketones Negative mg/dL (NEGATIVE) 10/11/18 18:08 Urine Blood 1+ (NEGATIVE) H 10/11/18 18:08 Urine Nitrate Negative (NEGATIVE) 10/11/18 18:08 Urine Bilirubin Negative (NEGATIVE) 10/11/18 18:08 Urine Urobilinogen Normal mg/dL (0.2-1.0) 10/11/18 18:08 Ur Leukocyte Esterase Neg [place]lene/uL (Negative) 10/11/18 18:08 Urine WBC (Auto) 2 /hpf (0-5) 10/11/18 18:08 Urine RBC (Auto) 7 /hpf (0-3) H 10/11/18 18:08 Ur Squamous Epith Cells 2 /hpf (0-5) 10/11/18 18:08 Calcium Oxalate Crystal Few /hpf (<OCC) H 10/11/18 18:08 Urine Bacteria Rare (<OCC) 10/11/18 18:08 Influenza Typ A,B (EIA) Negative for flu a/b (NEGATIVE) 10/11/18 17:29 - Hospital Course Hospital Course: 58 year old female presents to the emergency department with complaints of chest pressure, associated with shortness of breath, radiating to the left shoulder and down the left arm for the last 2-4 weeks. Patient states that the pain occurs with and without exertion. Patient also reports using a normal walker due to vertigo for the last 8 years. Patient has a history of cardiac murmur with a cardiac echo done as an outpatient at a different location. Serial cardiac enzymes were negative. EKG showed no acute changes. Echocardiogram showed normal left ejection fraction of 65%, no wall motion abnormality, no valvular abdominally. Patient has no further chest pain. Patient will be discharged to be followed outpatient for stress test. Discharge Exam - Head Exam Head Exam: ATRAUMATIC, NORMAL INSPECTION, NORMOCEPHALIC Discharge Plan - Follow Up Plan Condition: GOOD Disposition: HOME/ ROUTINE
[2018-10-13] MEDS ORDERED: Benzocaine/Menthol (Cepacol) Lozenge MT PRN (13:45)
[2018-10-13 16:38] VITALS: PULSE 70
--- NOTE | 2018-10-13 19:17 | CARD ---
APPROVED REPORT Date of service: 10/12/2018 EKG Measurement Heart [id number] <Conclusion> Normal sinus rhythm Normal ECG
[2018-10-13] MEDS ORDERED: Mometasone 220 mcg/puff-14 puff Inh IH SCH (22:00)
== END 2018-10-13 16:30 | disposition home or self-care (01) | DRG 132 ==
LOC: C.ER 15:50 → C.9E 18:26 → OBSVTOIN 18:26 → C.6T 19:21
PROVIDERS: ADMIT Internal Medicine Cardiovascular Disease; ATTEND Internal Medicine Cardiovascular Disease
DX: I25.119 Atherosclerotic heart disease of native coronary artery with unspecified angina pectoris (principal); I12.9 Hypertensive chronic kidney disease with stage 1 through stage 4 chronic kidney disease, or unspecified chronic kidney disease; E11.22 Type 2 diabetes mellitus with diabetic chronic kidney disease; N18.9 Chronic kidney disease, unspecified; J45.909 Unspecified asthma, uncomplicated; Z87.442 Personal history of urinary calculi; Z90.49 Acquired absence of other specified parts of digestive tract

== ENCOUNTER 2019-01-28 19:11 | Emergency (ER) | payer MEDICAID ==
[2019-01-28 19:11] VITALS: BMI 37.2
[2019-01-28 19:26] VITALS: TEMP 98.3; O2SAT 97
[2019-01-28] MEDS ORDERED: Lidocaine 5% Patch TD ONE (20:40)
[2019-01-28 21:23] LABS: SQUAMOUS EPITHIAL 2 /hpf (0-5); URINE BACTERIA RARE (<OCC)
--- NOTE | 2019-01-28 21:31 | C.PDOC ---
History Of Present Illness 58 year old female presents to the ED complaining of lower back pain radiating to right leg that started 2-3 days ago status post mopping floors at home. Reports history of past trauma after tripping and falling inside home and has been experiencing chronic back pain since then. Notes current back pain is different because it radiates to right leg. Reports she has been taking Motrin and Tylenol with no relief. Denies any recent trauma or injury, numbness, weakness, or tingling. Chief Complaint (Nursing): Back Pain History/Exam Limitations: no limitations Onset/Duration Of Symptoms: Days Current Symptoms Are (Timing): Still Present Quality Of Discomfort: "Pain" Severity: Severe Pain Scale Rating Of: 9 Previous Symptoms: Back Pain Associated Symptoms: None Exacerbating Factor(s): Movement, Standing Recent travel outside of the [place]: No Past Medical History Reviewed: Historical Data, Nursing Documentation, Vital Signs Vital Signs: Last Vital Signs Temp 98.3 F 01/28/19 19:20 Pulse 76 01/28/19 19:20 Resp 18 01/28/19 19:20 BP 143/90 01/28/19 19:20 Pulse Ox 97 01/28/19 19:20 - Medical History PMH: Asthma, Diabetes, HTN, Kidney Stones, Migraine, Chronic Kidney Disease Surgical History: Cholecystectomy Family History: States: No Known Family Hx - Social History Hx Tobacco Use: No Hx Alcohol Use: No Hx Substance Use: No - Immunization History Hx Tetanus Toxoid Vaccination: No Hx Influenza Vaccination: No Hx Pneumococcal Vaccination: No Review Of Systems Constitutional: Negative for: Fever, Chills Musculoskeletal: Positive for: Back Pain, Leg Pain (right) Neurological: Negative for: Weakness, Numbness, Other (tingling) Physical Exam - Physical Exam Appears: Non-toxic, No Acute Distress Skin: Warm, Dry, No Rash Head: Atraumatic, Normacephalic Eye(s): bilateral: Normal Inspection Nose: Normal Oral Mucosa: Moist Neck: Normal ROM, Supple Chest: Symmetrical Cardiovascular: Rhythm Regular Respiratory: Normal Breath Sounds, No Accessory Muscle Use Gastrointestinal/Abdominal: Soft, No Tenderness Back: No CVA Tenderness, No Decreased ROM, Other (LS tenderness mainly on the right side ) Extremity: No Pedal Edema, No Calf Tenderness, Capillary Refill (less than 2 sec to right leg ), No Deformity, No Swelling Extremity: Bilateral: Atraumatic, Normal Color And Temperature, Normal ROM Neurological/Psych: Oriented x3, Normal Speech, Normal Motor, Normal Sensation Gait: Other (Ambulating with limp) ED Course And Treatment O2 Sat by Pulse Oximetry: 97 (RA) Pulse Ox Interpretation: Normal - Other Rad LS xray X-Ray: Viewed By Me, Read By Radiologist Interpretation: Accession No. : [id number]. Patient Name / ID : LIZZY ISLAS / [id number]. Exam Date : 01/28/2019 20:41:49 ( Approved ). Study Comment : Sex / Age : F / [id number]. Creator : Kyaw Herman MD. Dictator : Kyaw Herman MD. Ground Equipment Mechanic : Tire Care Manager : Kyaw Herman MD. Approver2 : Report Date : 01/29/2019 09:19:37. My Comment : . Lumbar spine three views. HISTORY: Low back pain. COMPARISON: None available. FINDINGS: Spinal alignment is maintained. Given the technique of the film, evaluation for disc height loss particularly at the level of the thoracic spine is limited. Question mild superior endplate concavities of the T9 through T12 vertebral bodies as well as the L1 and L2 vertebral bodies. Question minimal inferior endplate concavities of the L2 and L3 vertebral bodies. Minimal anterior osteophyte formation noted within the thoracic spine. Lower level facet hypertrophy and sclerosis in the lumbar spine. Surgical clips in the right upper abdomen. Moderate fecal retention in the colon. Atherosclerotic case calcification in the aorta. Incidentally noted is some productive change at the level of the pubic bone on the sagittal views, nonspecific. Clinical correlation. Impression: Degenerative changes. If pain persists, consider correlation with MRI. In a ddition, given the suboptimal technique of this study particularly at the level of the thoracic spine, if there is concern for thoracic spine pathology, correlation with dedicated thoracic sign plain films may be helpful. Medical Decision Making Medical Decision Making: Plan - Flexeril 10mg PO - Toradol 60mg PO - Lidoderm patch - Ultram 50mg PO - LS spine XR - degenerative changes On reassessment, patient is resting comfortably, with improvement of back pain. Patient is ambulatory in the emergency department with no signs of discomfort. Patient was advised to follow up with physician/ortho in 1-2 days for possible need for MRI. Patient verbalizes understanding and is in agreement with plan. Patient is stable for discharge. Disposition Counseled Patient/Family Regarding: Studies Performed, Diagnosis, Need For Followup, Rx Given - Disposition Referrals: Sonia Carvajal MD [Staff Provider] - Disposition: HOME/ ROUTINE Disposition Time: 22:04 Condition: STABLE Additional Instructions: Use Medications as instructed Rest and Ice Follow up with Orthopedics/Neurology to evaluate for Sciatica Return to ED if symptoms worsen Prescriptions: diaZEpam [Valium] 5 mg PO TID #15 tab Lidocaine 5% [Lidoderm] 1 ea TD DAILY PRN #10 patch PRN Reason: Pain, Moderate (4-7) traMADol [Ultram] 50 mg PO TID #15 tab Instructions: Chronic Pain (DC), Sciatica (DC), Sciatica Exercises Forms: [employer] (Belarusian) Print Language: SAO TOMEAN - Clinical Impression Clinical Impression: Low back pain, Sciatica - PA / BEVELLER OPERATOR / Resident Statement MD/DO has reviewed & agrees with the documentation as recorded. - Scribe Statement The provider has reviewed the documentation as recorded by the Scribe Deepa Guillen All medical record entries made by the Scribe were at my direction and personally dictated by me. I have reviewed the chart and agree that the record accurately reflects my personal performance of the history, physical exam, medical decision making, and the department course for this patient. I have also personally directed, reviewed, and agree with the discharge instructions and disposition.
[2019-01-28 21:37] LABS: URINE BILIRUBIN NEGATIVE (NEGATIVE); URINE BLOOD SMALL (NEGATIVE); URINE CLARITY CLEAR (Clear); URINE COLOR YELLOW (YELLOW); URINE GLUCOSE (UA) 100 mg/dL (Normal)
[2019-01-28 21:38] LABS: PH,URINE 6.5 (5.0-8.0); URINE LEUKOCYTE ESTERASE NEG Leu/uL (Negative); URINE PROTEIN 1+ mg/dL (NEGATIVE); URINE UROBILINOGEN 0.2 mg/dL (0.2-1.0)
[2019-01-28 22:22] VITALS: BP 144/77; PULSE 79; RESP 19
--- NOTE | 2019-01-29 09:23 | RAD ---
Lumbar spine three views HISTORY: Low back pain. COMPARISON: None available. FINDINGS: Spinal alignment is maintained. Given the technique of the film, evaluation for disc height loss particularly at the level of the thoracic spine is limited. Question mild superior endplate concavities of the T9 through T12 vertebral bodies as well as the L1 and L2 vertebral bodies. Question minimal inferior endplate concavities of the L2 and L3 vertebral bodies. Minimal anterior osteophyte formation noted within the thoracic spine. Lower level facet hypertrophy and sclerosis in the lumbar spine. Surgical clips in the right upper abdomen. Moderate fecal retention in the colon. Atherosclerotic case calcification in the aorta. Incidentally noted is some productive change at the level of the pubic bone on the sagittal views, nonspecific. Clinical correlation. Impression: Degenerative changes. If pain persists, consider correlation with MRI. In addition, given the suboptimal technique of this study particularly at the level of the thoracic spine, if there is concern for thoracic spine pathology, correlation with dedicated thoracic sign plain films may be helpful.
[2019-01-29] MEDS ORDERED: Lidocaine 5% Patch TD SCH (10:00)
== END 2019-01-28 22:21 | disposition home or self-care (01) ==
LOC: C.ER 19:11
DX: M54.40 Lumbago with sciatica, unspecified side (principal)
CPT/HCPCS: 72100; 81001; 96372; 99284; J1885